=== PATIENT | female | born 2000 | race Caucasian/White ===

== ENCOUNTER 2019-05-23 00:15 | Inpatient (IN) ==
[2019-05-23] MEDS ORDERED: BUTORPHANOL 2 MG/ML VIAL IV PRN (00:48)
[2019-05-23] MEDS ORDERED: ONDANSETRON 4 MG/2 ML VIAL IV PRN ×2 (00:48→13:45)
[2019-05-23] MEDS ORDERED: LACTATED RINGERS 500 ML IV PRN (00:48)
[2019-05-23] MEDS ORDERED: OXYTOCIN/LR 20 UNIT/1,000 ML BAG IV SCH (01:00)
[2019-05-23] MEDS: LACTATED RINGERS 1,000 ML IV SCH ×3 (01:00→19:10)
[2019-05-23] MEDS: CLINDAMYCIN INJ 900 MG in PREMIX 1 EACH IV SCH ×2 (01:12→08:53)
[2019-05-23 01:21] LABS: Basophils # 0.1 10*3/uL (0.0-0.2); Basophils % 0.5 % (0.0-0.8); Eosinophils # 0.1 10*3/uL (0.0-0.87); Eosinophils % 1.1 % (0.00-10.9); Hematocrit 38.6 VOL% (35.7-47.0); Hemoglobin 13.1 GM/DL (12.0-16.0); Immature Granulocytes % 0.7 %; Immature Granulocytes Absolute 0.08 #; Lymphocytes # 2.3 10*3/uL (1.4-4.0); Lymphocytes % 18.5 % (21.3-54.2); Mean Corpuscular HGB Conc 33.9 GM/DL (32-36); Mean Corpuscular Volume 93.5 FL (87-102); Mean Platelet Volume 12.9 FL (9.6-12.0); Monocytes % 8.9 % (1.7-12.7); Neutrophils % 70.3 % (38.7-73.9); Platelet Count 163 T/CUMM (130-400); Red Blood Count 4.13 MC/CUMM (3.8-5.5); Red Cell Distribution Width 12.8 % (9.3-17.3); White Blood Count 12.3 T/CUMM (4-12)
[2019-05-23] MEDS ORDERED: PROMETHAZINE 25 MG/1 ML VIAL IM ONE (04:21)
[2019-05-23] MEDS ORDERED: FAMOTIDINE 20 MG/2 ML VIAL IV ONE (04:21)
[2019-05-23] MEDS ORDERED: CITRIC ACID/SODIUM CITRATE 30 ML UDCUP PO ONE (04:21)
[2019-05-23] MEDS ORDERED: ePHEDrine 50 MG/ML AMP IV PRN (04:21)
[2019-05-23] MEDS ORDERED: hydrOXYzine HCL 25 MG/1 ML VIAL IM PRN (04:21)
[2019-05-23] MEDS ORDERED: LACTATED RINGERS 1,000 ML IV ONE (04:21)
[2019-05-23] MEDS ORDERED: diphenhydrAMINE 50 MG/1 ML VIAL IV PRN ×2 (04:21)
[2019-05-23] MEDS ORDERED: NALOXONE 0.4 MG/ML VIAL IV PRN (04:21)
[2019-05-23] MEDS ORDERED: fentaNYL 2 MCG/ROPIV 0.2% EPID 100 ML EPIDURAL SCH (04:30)
[2019-05-23 06:51] LABS: Apearance,Urine Slightly Hazy (Clear); Bacteria,Urine Occasional /HPF (Few); Bilirubin,Urine Negative (Negative); Blood, Urine Large mg/dL (Negative); Glucose,Urine (UA) Negative (Negative); Ketones,Urine 20 mg/dL (Negative); Mucus,Urine Occasional /LPF (Occasional); Nitrite,Urine Negative (Negative); Protein,Urine Negative; RBC,Urine 436 /HPF (0-4); Urine Color Yellow (Yellow); Urine Specific Gravity 1.011 (1.001-1.035); Urine Urobilinogen < 2.0 EU/DL (0.2-1.0); WBC,Urine <1 /HPF (0-6)
[2019-05-23] MEDS ORDERED: miSOPROStol 200 MCG TABLET ONE (07:30)
[2019-05-23] MEDS ORDERED: OXYTOCIN/LR 0 UNIT/0 ML BAG IV ONE (07:30)
[2019-05-23] MEDS ORDERED: METHYLERGONOVINE 0.2 MG/1 ML AMP ONE (07:30)
[2019-05-23] MEDS ORDERED: CARBOPROST TROMETHAMINE 250 MCG/ML AMP IM ONE (07:31)
[2019-05-23] MEDS ORDERED: LIDOCAINE 1% 50 ML VIAL ONE (11:37)
[2019-05-23] MEDS ORDERED: BENZOCAINE 20%/MENTHOL 0.5% SPRAY 56 GM CAN TOP PRN (13:45)
[2019-05-23] MEDS ORDERED: DIPH/TET/ACEL PERT BOOSTER VACCINE 0.5 ML VIAL IM ONE (13:45)
[2019-05-23] MEDS ORDERED: HYDROCORTISONE 2.5% RECTAL CREAM 30 GM TUBE TOP PRN (13:45)
[2019-05-23] MEDS ORDERED: WITCH HAZEL PADS 100/JAR TOP PRN (13:45)
[2019-05-23] MEDS ORDERED: MEASLES/MUMPS/RUBELLA VACCINE 0.5 ML VIAL SUBCUT ONE (13:45)
[2019-05-23] MEDS ORDERED: RHO(D) IMMUNE GLOBULIN 300 MCG SYRINGE IM ONE (13:45)
[2019-05-23] MEDS ORDERED: BISACODYL 10 MG SUPP RECTAL PRN (13:45)
[2019-05-23] MEDS ORDERED: OXYTOCIN/LR 20 UNIT/1,000 ML BAG IV ONE (13:45)
[2019-05-23] MEDS ORDERED: ACETAMINOPHEN 325 MG TABLET PO PRN (13:45)
[2019-05-23] MEDS ORDERED: LANOLIN 50% CREAM 0.3 OZ TUBE TOP PRN (13:45)
[2019-05-23] MEDS: IBUPROFEN 800 MG TABLET PO PRN ×2 (14:38→20:33)
[2019-05-23] MEDS: oxyCODONE/ACETAMINOPHEN 5-325 MG TABLET PO PRN ×3 (16:23→20:38)
[2019-05-23] MEDS: DOCUSATE SODIUM 100 MG CAPSULE PO SCH (20:32)
[2019-05-24] MEDS: oxyCODONE/ACETAMINOPHEN 5-325 MG TABLET PO PRN ×3 (00:52→17:13)
[2019-05-24 06:14] LABS: Basophils # 0.1 10*3/uL (0.0-0.2); Basophils % 0.5 % (0.0-0.8); Eosinophils # 0.2 10*3/uL (0.0-0.87); Eosinophils % 1.6 % (0.00-10.9); Hematocrit 33.9 VOL% (35.7-47.0); Immature Granulocytes % 0.7 %; Immature Granulocytes Absolute 0.09 #; Lymphocytes # 2.5 10*3/uL (1.4-4.0); Lymphocytes % 19.7 % (21.3-54.2); Mean Corpuscular HGB Conc 32.4 GM/DL (32-36); Mean Corpuscular Volume 96.6 FL (87-102); Mean Platelet Volume 12.5 FL (9.6-12.0); Monocytes % 11.3 % (1.7-12.7); Neutrophils % 66.2 % (38.7-73.9); Platelet Count 127 T/CUMM (130-400); Red Blood Count 3.51 MC/CUMM (3.8-5.5); White Blood Count 12.7 T/CUMM (4-12)
[2019-05-24] MEDS: IBUPROFEN 800 MG TABLET PO PRN ×2 (09:02→17:12)
[2019-05-24] MEDS: DOCUSATE SODIUM 100 MG CAPSULE PO SCH ×2 (09:02→21:15)
[2019-05-25] MEDS: oxyCODONE/ACETAMINOPHEN 5-325 MG TABLET PO PRN ×2 (00:47→07:44)
[2019-05-25] MEDS: IBUPROFEN 800 MG TABLET PO PRN ×2 (00:48→12:07)
[2019-05-25] MEDS: DOCUSATE SODIUM 100 MG CAPSULE PO SCH (07:45)
[2019-05-25 07:52] VITALS: BP 111/58
== END 2019-05-25 13:25 | disposition home or self-care (01) | DRG 807 ==
LOC: N.LDOUT 00:15 → N.LD 00:17 → N.OB 17:11
PROVIDERS: ADMIT Obstetrics & Gynecology; ATTEND Obstetrics & Gynecology